=== PATIENT | male | born 1985 | race Caucasian/White ===

== ENCOUNTER 2021-03-17 08:38 | Emergency (ER) | payer OTHER, SELFPAY ==
[2021-03-17 08:46] VITALS: BP 164/90; PULSE 84; RESP 14; TEMP 37.1; O2SAT 98
--- NOTE | 2021-03-17 08:52 | ED.URI ---
HPI - URI/Sore Throat General Chief Complaint: Upper Respiratory Infection Stated Complaint: Ear Pain/Congestion Source: patient Mode of arrival: ambulatory Limitations: no limitations History of Present Illness HPI Narrative: Patient is a 35-year-old male who presents complaining of bilateral ear pain, congestion, sore throat and body aches x1 week. He denies fever. Denies nausea, vomiting and diarrhea. He denies chest pain or shortness of breath. Patient is not vaccinated for Covid. Denies having Covid in the past. He reports using [id number] medications this week with limited relief. Patient has no significant history. MD elicited complaint: sore throat and nasal congestion Related Data Allergies Allergy/AdvReac Type Severity Reaction Status Date / Time No Known Allergies Allergy Verified 03/17/21 08:56 Review of Systems Review of Systems: CONSTITUTIONAL: Denies fever, chills, or sweats. EYES: Denies visual changes, redness, or discharge. ENT: Reports congestion, sore throat, and otalgia. CARDIOVASCULAR: Denies chest pain, palpitations, or edema. RESPIRATORY: Denies cough or dyspnea. GASTROINTESTINAL: Denies abdominal pain, nausea, vomiting, or diarrhea. GENITOURINARY: Denies dysuria or hematuria. SKIN: Denies rash or itching. MUSCULOSKELETAL: Denies back pain, joint pain, or myalgia. NEUROLOGIC: Denies headache, numbness, dizziness, or weakness. PSYCHIATRIC: Denies anxiety or depression. [facility] Surgical History Surgical History (Updated 03/17/21 @ 08:54 by FAITH Maier) History of appendectomy Social History Social History (Updated 03/17/21 @ 08:54 by FAITH Maier) Smoking status: Never smoker Alcohol intake: current Alcohol use details: Occasional Substance use: never Living arrangements: with family Occupation/Education: occupation Gender identity (if verbalized by the patient): Male Comments At the time of signature, I have reviewed and agree with nursing past medical, surgical, social, and family history unless otherwise noted. Please see nursing chart for further information. There is no relevant family history pertinent to the presenting complaint. Exam Narrative: GENERAL: Well-appearing, well-nourished, and in no acute distress. HEAD: Normocephalic, atraumatic. EYES: EOMI. No redness or drainage. Conjunctiva are normal. ENT: Mucous membranes pink and moist. Nares clear. No rhinorrhea. Left TM cloudy, injected bulging, right TM normal. Throat with moderate erythema. Uvula midline. NECK: AROM. Supple. No lymphadenopathy. CHEST: No respiratory distress. HEART: Regular rate and rhythm. MUSCULOSKELETAL: No bony tenderness. EXTREMITIES: Normal range of motion. No edema. SKIN: Warm, dry, no rash. NEURO: No focal deficits. Alert and oriented x3. Gait steady. PSYCH: Normal affect. No signs of depression or anxiety. Course Vital Signs Vital signs: Vital Signs Temperature 37.1 C 03/17/21 08:46 Pulse Rate 84 03/17/21 08:46 Respiratory Rate 14 03/17/21 08:46 Blood Pressure 164/90 H 03/17/21 08:46 Pulse Oximetry 98 03/17/21 08:46 Temperature 37.1 C 03/17/21 08:46 Pulse Rate 84 03/17/21 08:46 Respiratory Rate 14 03/17/21 08:46 Blood Pressure 164/90 H 03/17/21 08:46 Pulse Oximetry 98 03/17/21 08:46 Reviewed. Patient has been instructed to follow-up with his PCP regarding his blood pressure. MDM - URI/Sore Throat MDM Narrative Medical decision making narrative: Rapid Covid and rapid strep negative. Covid PCR sent at this time. Patient does appear to have left otitis media and erythema to throat. Patient started on Augmentin at this time. Patient also given steroid for inflammation. Patient aware of hypertension. Patient is asymptomatic with BP. Discussed dietary changes. Discussed PCP follow-up. Referral to be given. Patient is aware of red flags and when to go to the emergency room. Patient agrees with plan
[2021-03-18 19:11] LABS: SARS-CoV-2 RNA PCR Negative
== END 2021-03-17 09:25 | disposition home or self-care (01) ==
PROVIDERS: Emergency Provider Nurse Practitioner
DX: H66.002 Acute suppurative otitis media without spontaneous rupture of ear drum, left ear (principal); J06.9 Acute upper respiratory infection, unspecified; J01.90 Acute sinusitis, unspecified; Z20.822 Contact with and (suspected) exposure to COVID-19
CPT/HCPCS: 87081; 87426; 87880; 99203; C9803; G0463; U0003; U0005

== ENCOUNTER 2022-06-06 15:11 | Emergency (ER) | payer OTHER, SELFPAY ==
--- NOTE | ~2022-06-06 | CT_ITS ---
EXAMINATION: CT brain wo con DATE: 06/06/2022 17:02 INDICATION: Left facial numbness. TECHNIQUE: Computed tomography (CT) of the head was performed without intravenous contrast. The mA wa s adjusted according to patient size. Iterative reconstruction technique was employed. The dose-lengt h product was 681.00 mGy-cm. COMPARISON: Head CT 09/23/2015 FINDINGS: There is no intracranial hemorrhage, acute infarction, or abnormal intracranial mass lesion . The ventricles are normal in size. There is mild mucosal thickening in the paranasal sinuses. The m astoid air cells are normal. The orbits are normal. IMPRESSION: 1. Normal brain. Reviewed, dictated and finalized at location A. LFA DEHYDRATOR OPERATOR IMPRESSION: 1. Normal brain.
[2022-06-06 15:11] VITALS: TEMP 36.3
[2022-06-06 15:21] VITALS: BP 149/89; PULSE 73; RESP 18; TEMP 36.3; O2SAT 99
--- NOTE | 2022-06-06 15:33 | ED_ITS ---
HPI - General Adult General Chief complaint: Unspecified Stated complaint: left side facial numbness; left arm numbness Time Seen by Provider: 06/06/22 15:28 Related Data Home Medications Medication Instructions Recorded Confirmed No Home Medications 06/06/22 06/06/22 Allergies Allergy/AdvReac Type Severity Reaction Status Date / Time No Known Allergies Allergy Verified 06/06/22 15:29 [facility] Surgical History Surgical History (Updated 03/17/21 @ 08:54 by Laura Farooq, CONFIGURATION MANAGEMENT ARCHITECT) History of appendectomy Social History Social History (Updated 03/17/21 @ 08:54 by Laura Farooq, CONFIGURATION MANAGEMENT ARCHITECT) Smoking status: Never smoker Alcohol intake: current Alcohol use details: Occasional Substance use: never Living arrangements: with family Occupation/Education: occupation Gender identity (if verbalized by the patient): Male Course Vital Signs Vital signs: Vital Signs Temperature 36.3 C L 06/06/22 15:21 Pulse Rate 73 06/06/22 15:21 Respiratory Rate 18 06/06/22 15:21 Blood Pressure 149/89 H 06/06/22 15:21 Pulse Oximetry 99 06/06/22 15:21 Oxygen Delivery Room Air 06/06/22 15:21 Temperature 36.3 C L 06/06/22 15:21 Pulse Rate 73 06/06/22 15:21 Respiratory Rate 18 06/06/22 15:21 Blood Pressure 149/89 H 06/06/22 15:21 Pulse Oximetry 99 06/06/22 15:21 Oxygen Delivery Room Air 06/06/22 15:21 Medical Decision Making Vital Signs Vital Signs: Vital Signs Temperature 36.3 C L 06/06/22 15:21 Pulse Rate 73 06/06/22 15:21 Respiratory Rate 18 06/06/22 15:21 Blood Pressure 149/89 H 06/06/22 15:21 Pulse Oximetry 99 06/06/22 15:21 Oxygen Delivery Room Air 06/06/22 15:21 Temperature 36.3 C L 06/06/22 15:21 Pulse Rate 73 06/06/22 15:21 Respiratory Rate 18 06/06/22 15:21 Blood Pressure 149/89 H 06/06/22 15:21 Pulse Oximetry 99 06/06/22 15:21 Oxygen Delivery Room Air 06/06/22 15:21 Discharge Plan Discharge Prescriptions: No Action No Home Medications Follow-up/Referrals: UNKNOWN,DOCTOR [Primary Care Provider] -
--- NOTE | 2022-06-06 15:36 | PC.NURSE ---
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
--- NOTE | 2022-06-06 15:39 | ED.NEUROSD ---
HPI - Neuro Symptoms/Deficit General Chief Complaint: Unspecified Stated Complaint: left side facial numbness; left arm numbness Time Seen by Provider: 06/06/22 15:28 Source: patient and RN notes reviewed Mode of arrival: ambulatory Limitations: no limitations History of Present Illness HPI Narrative: Patient states that he woke up this morning and felt like a burning on the left side of his face left chest down to his left arm. He denies any weakness in his extremities he also denies any weakness in his face. He is not having any difficulty with speech, he is not having any difficulty swallowing. He also states he had some joint pain and body aches similar to when he had COVID 8 months ago. He says that he has been having these body aches for the last couple of days and took an at-home COVID test 2 days ago and it was negative. Today he developed the symptoms of the numbness tingling or burning on his face and left arm. He denies any chest pain. He denies any nausea vomiting diarrhea, shortness of breath, fever chills. He does state he has a sore throat and 2 of his sisters are positive for strep throat at home. Onset (ago): hour(s) (6) Location: left face and left arm History of same: No Severity: mild Quality: numb and burning Relieving factors: none Exacerbating factors: none Context: sudden onset On Anticoagulants: No Associated symptoms: denies other symptoms Related Data Home Medications Medication Instructions Recorded Confirmed No Home Medications 06/06/22 06/06/22 Allergies Allergy/AdvReac Type Severity Reaction Status Date / Time No Known Allergies Allergy Verified 06/06/22 15:29 Review of Systems Review of Systems: All systems reviewed & are unremarkable except as noted in HPI and below Constitutional: Constitutional: Denies chills and Denies fever(s) ENT: Reports sore throat Musculoskeletal: Musculoskeletal: Reports myalgias and Reports arthralgias PMF Past Medical History Medical History (Updated 06/06/22 @ 17:20 by Pratik Diggs MD) No active medical problems Surgical History Surgical History History of appendectomy Social History Social History Smoking status: Never smoker Alcohol intake: current Alcohol use details: Occasional Substance use: never Living arrangements: with family Occupation/Education: occupation Gender identity (if verbalized by the patient): Male Exam Const: General: healthy appearing, no acute distress and alert Nutritional Appearance: well nourished Orientation/consciousness: patient oriented x3 Limitations: no limitations HENMT: Head: normal to inspection Ears: external ears normal Face/Nose/Sinus: Normal external nose present Face and sinus: normal facial exam Mouth: Yes moist mucous membranes Eyes: Conjunctivae: conjunctivae normal Pupils: Equal, round and reactive pupils present EOM: EOMs intact bilaterally Neck: Neck: normal visual inspection Resp: Effort & Inspection: normal respiratory effort Auscultation: clear to auscultation bilaterally Cardio: Rate: regular rate Rhythm: regular rhythm GI: GI Palp: Yes Soft to palpation and No Tenderness to palpation present (GI) Auscultation: normal bowel sounds Back/Spine/Pelvis: Cervical Spine: cervical ROM normal Thoracic/Lumbar Spine: thoraco-lumbar ROM normal Skin: General skin exam: normal color Rashes: no rashes Neuro: General: patient oriented x3, moves all extremities, no focal motor deficits and CN's II-XI intact bilaterally Speech: normal speech Gait exam (Neuro): Normal gait present Extrem: General: normal to inspection and no clubbing, cyanosis or edema Psych: Mental Status: mental status grossly normal Affect: normal affect Attitude: cooperative Course Vital Signs Vital signs: Vital Signs Temperature 36.3 C L 06/06/22 15:11 Temper
--- NOTE | 2022-06-06 15:48 | ECG_ITS ---
Measurements Intervals [place] Rate: 65 P: 48 DE: 142 QRS: 38 QRSD: 122 T: 62 QT: 399 QTc: 416 Interpretive Statements SINUS RHYTHM WITHIN NORMAL LIMITS NO PREVIOUS ECG AVAILABLE FOR COMPARISON Electronically Signed On 06-07-2022 7:59:21 [employer] INSPECTOR TIGHT by Arsen Franco M.D.
[2022-06-06 16:03] LABS: Basophils Absolute Auto 0.02 K/mm3 (0.00-0.10); Basophils Percent Auto 0.2 % (0.0-1.0); Eosinophils Absolute Auto 0.09 K/mm3 (0.02-0.50); Eosinophils Percent Auto 1.1 % (1.0-6.0); Hemoglobin 15.7 g/dL (14.0-18.0); Immature Granulocyte Absolute 0.04 K/mm3 (0.00-0.00); Immature Granulocyte Percent A 0.5 % (0.0-0.0); Lymphocytes Absolute Auto 3.34 K/mm3 (1.10-4.50); Mean Corpuscular HGB Conc 34.1 g/dL (32.0-36.0); Mean Corpuscular Hemoglobin 28.4 pg (27.0-31.0); Mean Corpuscular Volume 83.2 fL (78.0-102.0); Mean Platelet Volume 9.4 fl (8.7-11.0); Monocytes Absolute Auto 0.61 K/mm3 (0.10-0.90); Monocytes Percent Auto 7.5 % (2.0-11.0); Neutrophils Percent Auto 49.7 % (50.0-70.0); Platelet Count Result 292 K/mm3 (150-420); Red Blood Count 5.53 M/mm3 (4.70-6.10); White Blood Count 8.1 K/mm3 (4.8-10.8)
[2022-06-06 16:19] LABS: CRP < 0.5 mg/dL (0.0-0.9)
[2022-06-06 16:20] VITALS: BP 149/103; PULSE 84; RESP 18; O2SAT 99
[2022-06-06 16:23] LABS: Alanine Aminotransferase 40 U/L (16-63); Albumin Level 4.1 g/dL (3.4-5.0); Alkaline Phosphatase 78 U/L (46-116); Anion Gap 10 mmol/L (8-16); Aspartate Amino Transferase 26 U/L (15-37); Bilirubin,Total 0.5 mg/dL (0.00-1.00); Blood Urea Nitrogen 15 mg/dL (7-18); Calcium 8.6 mg/dL (8.5-10.1); Carbon Dioxide 27 mmol/L (21-32); Chloride 103 mmol/L (98-108); Estimated CRCL calculation 111 ml/min; Estimated Glomerular Filt Rate > 60; Glucose 91 mg/dL (70-99); Osmolality Calculated 290 mOsm/kg (285-295); Potassium 3.8 mmol/L (3.5-5.1); Sodium 140 mmol/L (136-145); Total Protein 7.8 g/dL (6.4-8.2)
--- NOTE | 2022-06-06 16:26 | PC.NURSE ---
During reassessment of pt, he stated he had a sore throat and that both his sisters have strep at this time, ERP made aware, strep swab ordered.
[2022-06-06 16:29] LABS: Lactic Acid Reflex 0.6 mmol/L (0.4-2.0)
[2022-06-06 16:34] LABS: Influenza A QL RT-PCR Negative (Negative); Influenza B QL RT-PCR Negative (Negative); SARS-CoV-2 RNA PCR Negative (Negative)
[2022-06-06 17:06] LABS: Strep Group A RT-PCR NOT DETECTED (Negative)
[2022-06-06 17:27] VITALS: BP 155/95; PULSE 76; RESP 18; TEMP 36.4; O2SAT 100
== END 2022-06-06 17:29 | disposition home or self-care (01) ==
PROVIDERS: Emergency Provider Emergency Medicine
DX: R20.2 Paresthesia of skin (principal); Z20.822 Contact with and (suspected) exposure to COVID-19
CPT/HCPCS: 36415; 70450; 80053; 83605; 83735; 85025; 86140; 87636; 87651; 93005; 99284

== ENCOUNTER 2022-07-06 04:11 | Emergency (ER) | payer OTHER, SELFPAY ==
--- NOTE | ~2022-07-06 | CT_ITS ---
EXAMINATION: CT brain wo con INDICATION: Transient alteration of awareness COMPARISON: 06/06/2022 TECHNIQUE: Standard unenhanced head CT. The dose-length product (DLP) was 605.33 mGy-cm. The mA was a djusted according to patient size. Iterative reconstruction technique was employed. FINDINGS: There is no intracranial hemorrhage, acute infarction, or abnormal mass lesion. The ventric les are normal. There is no abnormal mass effect or midline shift. The townsend-white matter differentiat ion is normal. The basal cisterns are patent. The orbits are normal. There is mild mucosal thickening of the paranasal sinuses. IMPRESSION: 1. No acute intracranial abnormality. Reviewed, dictated and finalized at location A.
[2022-07-06 04:18] VITALS: BP 138/97; PULSE 87; RESP 20; TEMP 36.6; O2SAT 99
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
[2022-07-06] MEDS: TETANUS,DIPHTHERIA,AC PERTUSSIS ADULT 0.5 ML (ADACEL) IM (04:58)
[2022-07-06 07:04] VITALS: BP 126/55; PULSE 80; RESP 18; TEMP 36.6; O2SAT 97
== END 2022-07-06 07:07 | disposition home or self-care (01) ==
PROVIDERS: Emergency Provider Internal Medicine Critical Care Medicine
DX: S01.81XA Laceration without foreign body of other part of head, initial encounter (principal); R41.82 Altered mental status, unspecified; Z23 Encounter for immunization; W50.0XXA Accidental hit or strike by another person, initial encounter
CPT/HCPCS: 12011; 70450; 90471; 90715; 99284

== ENCOUNTER 2022-07-06 10:13 | Emergency (ER) | payer OTHER, SELFPAY ==
[2022-07-06 10:13] VITALS: BP 126/84; PULSE 94; RESP 20; TEMP 36; O2SAT 99
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
[2022-07-06] MEDS: SODIUM CHLORIDE 0.9% IV 1,000 ML 999 ML IV CONT ×2 (11:04→11:46)
[2022-07-06] MEDS: METOCLOPRAMIDE HCL INJ 10 MG/2 ML VIAL IV PUSH (11:05)
[2022-07-06] MEDS: ONDANSETRON INJ 4 MG/2 ML VIAL IV PUSH (11:06)
[2022-07-06 11:14] LABS: Basophils Absolute Auto 0.01 K/mm3 (0.00-0.10); Basophils Percent Auto 0.1 % (0.0-1.0); Eosinophils Absolute Auto 0.01 K/mm3 (0.02-0.50); Eosinophils Percent Auto 0.1 % (1.0-6.0); Hematocrit 45.1 % (40.0-54.0); Hemoglobin 15.4 g/dL (14.0-18.0); Immature Granulocyte Absolute 0.06 K/mm3 (0.00-0.00); Immature Granulocyte Percent A 0.8 % (0.0-0.0); Lymphocytes Absolute Auto 2.74 K/mm3 (1.10-4.50); Lymphocytes Percent Auto 34.6 % (18.0-42.0); Mean Corpuscular HGB Conc 34.1 g/dL (32.0-36.0); Mean Platelet Volume 9.2 fl (8.7-11.0); Monocytes Absolute Auto 0.42 K/mm3 (0.10-0.90); Monocytes Percent Auto 5.3 % (2.0-11.0); Neutrophils Absolute Auto 4.7 K/mm3 (1.7-7.2); Neutrophils Percent Auto 59.1 % (50.0-70.0); Platelet Count Result 312 K/mm3 (150-420); Red Cell Distribution Width 12.6 % (11.6-14.4); White Blood Count 7.9 K/mm3 (4.8-10.8)
[2022-07-06 11:32] LABS: Appearance Urine Clear (Clear); Bilirubin Urine Negative (Negative); Blood Urine Negative (Negative); Color Urine Light Yellow (Yellow); Glucose Urine UA Negative (Negative); Ketones Urine Negative (Negative); Leukocyte Esterase Ur Negative LEU/UL (Negative); Nitrate Urine Negative (Negative); Protein Urine Negative (Negative); Specific Grav Ur 1.015 (1.010-1.020); Urobilinogen Urine 0.2 mg/dL (0.2-1.0); pH Urine 7.5 (5.0-8.0)
[2022-07-06 11:37] LABS: Alanine Aminotransferase 41 U/L (16-63); Albumin Level 4.3 g/dL (3.4-5.0); Alkaline Phosphatase 74 U/L (46-116); Amylase 26 U/L (25-115); Anion Gap 15 mmol/L (8-16); Aspartate Amino Transferase 28 U/L (15-37); Bilirubin,Total 0.9 mg/dL (0.00-1.00); Blood Urea Nitrogen 13 mg/dL (7-18); Calcium 8.3 mg/dL (8.5-10.1); Carbon Dioxide 25 mmol/L (21-32); Chloride 107 mmol/L (98-108); Creatine Kinase 528 U/L (39-308); Estimated CRCL calculation 110 ml/min; Estimated Glomerular Filt Rate > 60; Ethanol 160 mg/dL (0-6); Glucose 139 mg/dL (70-99); Lipase 21 U/L (16-77); Magnesium 2.2 mg/dL (1.8-2.4); Osmolality Calculated 306 mOsm/kg (285-295); Potassium 3.5 mmol/L (3.5-5.1); Salicylate 1.5 mg/dL (2.8-20.0); Sodium 147 mmol/L (136-145); Total Protein 7.9 g/dL (6.4-8.2)
[2022-07-06 11:39] LABS: Amphetamine Screen Urine Negative (Negative); Barbiturate Screen Urine Negative (Negative); Benzodiazepines Screen Urine Negative (Negative); Cannabinoid Screen Urine Positive (Negative); Cocaine Screen Urine Negative (Negative); Methadone Screen Urine Negative (Negative); Opiate Screen Urine Negative (Negative); Phencyclidine Screen Urine Negative (Negative)
[2022-07-06 11:41] LABS: Add Urine Microscopic? NO
[2022-07-06 11:42] LABS: Acetaminophen < 2 ug/mL (10-30)
[2022-07-06 11:49] VITALS: BP 115/61; PULSE 88; RESP 16; O2SAT 99
[2022-07-06 12:21] LABS: SARS-CoV-2 RNA PCR Negative (Negative)
[2022-07-06 14:01] VITALS: BP 143/99; PULSE 92; RESP 18; TEMP 36.7; O2SAT 98
[2022-07-06 15:36] LABS: Ethanol 92 mg/dL (0-6)
[2022-07-06 16:09] VITALS: BP 155/85; PULSE 100; RESP 18; O2SAT 99
[2022-07-06 17:24] LABS: Ethanol 54 mg/dL (0-6)
--- NOTE | 2022-07-06 17:30 | PC.NURSE ---
Pt has been medically cleared and [address] contacted per protocol for mental health viri. Pt informed on POC and is cooperative at this time, watching TV and and sipping water. Sitter remains at pt bedside, will await counselor for eval.
[2022-07-06 18:06] VITALS: BP 148/100; PULSE 88; RESP 16; O2SAT 99
[2022-07-06 19:33] VITALS: BP 138/86; PULSE 93; RESP 18; TEMP 36.8
== END 2022-07-06 19:37 | disposition home or self-care (01) ==
PROVIDERS: Emergency Provider Emergency Medicine
DX: F10.129 Alcohol abuse with intoxication, unspecified (principal); Y90.0 Blood alcohol level of less than 20 mg/100 ml; F32.A Depression, unspecified; R45.851 Suicidal ideations; Z20.822 Contact with and (suspected) exposure to COVID-19
CPT/HCPCS: 12011; 36415; 70450; 80053; 80307; 81003; 82150; 82550; 83690; 83735; 84443; 85025; 90471; 90715; 96361; 96374; 96375; 99284; J2405; J2765; J7030; U0003; U0005

== ENCOUNTER 2022-07-10 16:47 | Emergency (ER) | payer OTHER, SELFPAY ==
--- NOTE | 2022-07-10 16:49 | ED.URI ---
HPI - URI/Sore Throat General Chief Complaint: Upper Respiratory Infection Stated Complaint: chest tight, ears Time Seen by Provider: 07/10/22 16:49 Source: patient and RN notes reviewed History of Present Illness HPI Narrative: Patient is a 37-year-old male who presents to urgent care with complaints of chest congestion and bilateral ear pain. Patient states he has been off and on for approximately 3 weeks and he has been taking cold medication. Patient denies any fevers, nausea or vomiting. Denies any wheezing or shortness of breath. Denies any sinus congestion or pressure. No other acute complaints. No acute distress noted. Patient aware of the plan of care. Some parts of this dictation were generated by voice recognition software and may contain typographical and/or grammatical inaccuracies. Related Data Allergies Allergy/AdvReac Type Severity Reaction Status Date / Time No Known Allergies Allergy Verified 07/06/22 10:25 Review of Systems Review of Systems: CONSTITUTIONAL: Denies fever, chills, or sweats. EYES: Denies visual changes, redness, or discharge. ENT: Denies rhinorrhea, congestion, sore throat. Reports postnasal drainage and bilateral otalgia CARDIOVASCULAR: Denies chest pain, palpitations, or edema. RESPIRATORY: Reports of cough without dyspnea GASTROINTESTINAL: Denies abdominal pain, nausea, vomiting, or diarrhea. GENITOURINARY: Denies dysuria or hematuria. SKIN: Denies rash or itching. MUSCULOSKELETAL: Denies back pain, joint pain, or myalgia. NEUROLOGIC: Denies headache, numbness, or weakness. All other systems reviewed are negative, except as documented in HPI. [facility] Past Medical History Medical History No active medical problems Surgical History Surgical History History of appendectomy Social History Social History Smoking status: Never smoker Alcohol intake: current Alcohol use details: Occasional Substance use: never Substance use type: marijuana Living arrangements: with family Occupation/Education: occupation Gender identity (if verbalized by the patient): Male Comments At the time of my signature, I reviewed and agree with the nursing past medical, surgical, social, and family history. There is no relevant family history pertinent to the patient complaint. Exam Narrative: GENERAL: This is a well-nourished, well-developed patient, in no apparent distress. HEAD: normocephalic, atraumatic. EYES: PERRL. Sclera clear/white. Vision is grossly intact. EARS: External ears normal, auditory canals clear and without drainage, TMs normal without perforation. Hearing grossly intact. NOSE: External nose normal with no obvious nasal discharge, nares without redness, clear rhinorrhea. THROAT: Mucous membranes moist, posterior pharynx clear. Moderate postnasal drainage NECK: Neck supple, non-tender without lymphadenopathy CARDIOVASCULAR: Regular rate and rhythm without murmurs, gallops, or rubs. RESPIRATORY: Clear to auscultation. Breath sounds equal bilaterally. No wheezes, rales, or rhonchi. SKIN: warm, intact with no suspicious lesions or rash, good texture and turgor. NEURO: awake, alert, and oriented to person, place and time. There were no obvious focal neurologic abnormalities. EXTREMITIES: No clubbing, cyanosis, or edema. Course Course Level of Care: Express Care Visit Vital Signs Vital signs: Vital Signs Temperature 98.4 F 07/10/22 16:56 Pulse Rate 91 07/10/22 16:56 Respiratory Rate 20 07/10/22 16:56 Blood Pressure 140/93 H 07/10/22 16:56 Pulse Oximetry 98 07/10/22 16:56 Oxygen Delivery Room Air 07/10/22 16:56 Temperature 98.4 F 07/10/22 16:56 Pulse Rate 91 07/10/22 16:56 Respiratory Rate 20 07/10/22 16:56 Blood Pressure 140/93 H 07/10/22 16:56 Pulse Oximetry 98 07/10/22 16
[2022-07-10 16:56] VITALS: BP 140/93; PULSE 91; RESP 20; TEMP 36.9; O2SAT 98
== END 2022-07-10 17:31 | disposition home or self-care (01) ==
PROVIDERS: Emergency Provider Nurse Practitioner Family
DX: J32.9 Chronic sinusitis, unspecified (principal)
CPT/HCPCS: 99213; G0463

== ENCOUNTER 2022-12-09 14:55 | Emergency (ER) | payer OTHER, SELFPAY ==
[2022-12-09 15:03] VITALS: BP 142/92; PULSE 92; RESP 16; TEMP 36.4; O2SAT 99
--- NOTE | 2022-12-09 15:10 | ED.URI ---
HPI - URI/Sore Throat General Chief Complaint: Upper Respiratory Infection Stated Complaint: throat/tingly body History of Present Illness HPI Narrative: pt is a 37 y/o male, presents to with 5 day hx of sore throat symptoms without fevers or chills. Today he was exerting himself moving concrete and began feeling tingly all over and had to sit down. this has resolved since sitting to drive here and since sitting in the exam room in a climate controlled room. He is drinking fluids well and urinating normally. He denies associated fevers or chills. He does have nasal congestion and a runny nose. He denies any other complaints or modifying factors. Related Data Allergies Allergy/AdvReac Type Severity Reaction Status Date / Time No Known Allergies Allergy Verified 07/06/22 10:25 Review of Systems Constitutional: Constitutional: Reports no additional constitutional complaints ENT: Reports as per HPI Respiratory: Respiratory: Reports as per HPI [facility] Past Medical History Medical History No active medical problems Surgical History Surgical History History of appendectomy Social History Social History Smoking status: Never smoker Alcohol intake: current Alcohol use details: Occasional Substance use: never Substance use type: marijuana Living arrangements: with family Occupation/Education: occupation Gender identity (if verbalized by the patient): Male Exam Const: General: cooperative, healthy appearing, comfortable and no acute distress Nutritional Appearance: obese Orientation/consciousness: oriented to person, oriented to place, oriented to time and patient oriented x3 Limitations: no limitations HENMT: Head: normal to inspection Ears: hearing grossly normal bilaterally, external ears normal and TM abnormal (serous pattern noted bilaterally. no erythema or purulence ) Face/Nose/Sinus: Normal external nose present, Normal nares present, No nasal polyps present and Normal nasal mucous membranes and turbinates present Mouth: Yes Normal oral and palatal mucosa present Throat: posterior oropharynx normal, tonsils normal, uvula midline and other (no tonsil hypertrophy, no exudate, + cobble stone appearance posterior phar) Eyes: General: appearance normal, both eyes and all related structures Eyelids: eyelids normal Conjunctivae: conjunctivae normal Neck: Neck: normal visual inspection, no lymphadenopathy, no meningeal signs and trachea midline Lymphatic: no lymphadenopathy noted Resp: Effort & Inspection: normal respiratory effort and able to speak in complete sentences Auscultation: clear to auscultation bilaterally Cardio: Rate: regular rate Rhythm: regular rhythm Skin: General skin exam: normal color Lesions: no lesions Rashes: no rashes Neuro: General: oriented to person, oriented to place, oriented to time, patient oriented x3, gait normal, tone normal, moves all extremities, Normal light touch and pain sensation, no meningeal signs, no focal motor deficits and CN's II-XI intact bilaterally Course Course Level of Care: Express Care Visit (33023) Vital Signs Vital signs: Vital Signs Temperature 36.4 C L 12/09/22 15:03 Pulse Rate 92 12/09/22 15:03 Respiratory Rate 16 12/09/22 15:03 Blood Pressure 142/92 H 12/09/22 15:03 Pulse Oximetry 99 12/09/22 15:03 Oxygen Delivery Room Air 12/09/22 15:03 Temperature 36.4 C L 12/09/22 15:03 Pulse Rate 92 12/09/22 15:03 Respiratory Rate 16 12/09/22 15:03 Blood Pressure 142/92 H 12/09/22 15:03 Pulse Oximetry 99 12/09/22 15:03 Oxygen Delivery Room Air 12/09/22 15:03 MDM - URI/Sore Throat MDM Narrative Medical decision making narrative: strep negative. Suspect viral URI, mild dehydration. Plan to discharge home encouraging rest,
== END 2022-12-09 15:38 | disposition home or self-care (01) ==
PROVIDERS: Emergency Provider Nurse Practitioner Family
DX: J06.9 Acute upper respiratory infection, unspecified (principal)
CPT/HCPCS: 87081; 87880; 99213; G0463

== ENCOUNTER 2023-01-03 16:55 | Emergency (ER) | payer OTHER, SELFPAY ==
[2023-01-03] VITALS (18 sets, daily range): BP systolic 119–168; BP diastolic 84–104; PULSE 69–84; RESP 12–21; TEMP 36.4–36.8; O2SAT 96–100
[2023-01-03] MEDS: EPINEPHrine HCL INJ 1 MG/ML AMPUL 0.5 MG IM (17:45)
[2023-01-03] MEDS: KETOROLAC 30 MG/ML VIAL (*BKC) IV PUSH (17:47)
--- NOTE | 2023-01-03 17:50 | ED.ALLEREA ---
HPI - Allergic Reaction General Chief complaint: Allergic Reaction Stated complaint: bee sting Time Seen by Provider: 01/03/23 17:02 Source: patient Mode of arrival: ambulatory Limitations: no limitations History of Present Illness HPI narrative: 37 yo M with PMHx of allergic reactions to insect stings came to the ED 4 hours after being stung in the top of the right hand by a bee or wasp (he is not sure). The area is swelling rapidly, a/w 8/10 pain, numbness in his fingers. Feeling his throat is scratchy and having persistent abdominal discomfort since the sting. No respiratory distress. MD complaint: allergic reaction Onset (ago): hour(s) Exposure: insect bite Known history of allergy to: bee stings Severity: severe Treatment prior to arrival: none Previous Allergic Reaction History: angioedema Related Data Allergies Allergy/AdvReac Type Severity Reaction Status Date / Time No Known Allergies Allergy Verified 01/03/23 17:24 Review of Systems Constitutional: Constitutional: Reports as per HPI and Reports no additional constitutional complaints Eyes: Eyes: Reports as per HPI and Reports no additional eye complaints ENT: Reports system reviewed and no additional complaints, except as documented and Reports as per HPI Cardiovascular: Cardiovascular: Reports as per HPI and Reports no additional cardiovascular complaints Respiratory: Respiratory: Reports as per HPI and Reports no additional respiratory complaints Gastrointestinal: Gastrointestinal: Reports as per HPI and Reports no additional gastrointestinal complaints Genitourinary: Genitourinary: Reports as per HPI Musculoskeletal: Musculoskeletal: Reports no additional musculoskeletal complaints and Reports as per HPI Integumentary/Breasts: Skin/Breast: Reports system reviewed and no additional complaints, except as docu and Reports as per HPI Neurologic: Reports system reviewed and no additional complaints, except as documented and Reports as per HPI Psychiatric: Psychiatric: Reports no additional psychiatric complaints and Reports as per HPI Endocrine: Endocrine: Reports no additional endocrine complaints and Reports as per HPI Hematologic/Lymphatic: Hematologic/Lymphatic: Reports no additional hematologic/lymphatic complaints and Reports as per HPI Allergic/Immunologic: Allergic/Immunologic: Reports no additional allergic/immunologic complaints and Reports as per HPI PMFSH Past Medical History Medical History No active medical problems Surgical History Surgical History History of appendectomy Social History Social History Smoking status: Never smoker Alcohol intake: current Alcohol use details: Occasional Substance use: never Substance use type: marijuana Living arrangements: with family Occupation/Education: occupation Gender identity (if verbalized by the patient): Male Exam Const: General: cooperative, healthy appearing, comfortable, no acute distress, well developed, alert, awake, average body habitus and well nourished Nutritional Appearance: average body habitus and well nourished Orientation/consciousness: oriented to person, oriented to place and oriented to time Limitations: no limitations HENMT: Head: normal to inspection Ears: hearing grossly normal bilaterally, external ears normal and TM's normal bilaterally Face/Nose/Sinus: Normal external nose present, Normal nares present, No nasal polyps present, Normal nasal mucous membranes and turbinates present, Normal septum present, No nasal discharge present, normal facial exam, sinuses nontender and face symmetric Face and sinus: normal facial exam, sinuses nontender and face symmetric Mouth: Yes Normal oral and palatal mucosa present, Yes lip normal, Yes tongue normal, Yes Normal salivary glands and duct
[2023-01-03] MEDS: methylPREDNISolone SOD SUCC 40 MG VIAL 80 MG IV PUSH (17:52)
[2023-01-03] MEDS: FAMOTIDINE 20 MG/2 ML VIAL 40 MG IV PUSH (17:53)
[2023-01-03] MEDS: MORPHINE SULFATE (*CRX) 4 MG/ML INJ IV PUSH (19:10)
== END 2023-01-03 20:58 | disposition home or self-care (01) ==
PROVIDERS: Emergency Provider Emergency Medicine
DX: T63.441A Toxic effect of venom of bees, accidental (unintentional), initial encounter (principal); T78.2XXA Anaphylactic shock, unspecified, initial encounter; T78.3XXA Angioneurotic edema, initial encounter
CPT/HCPCS: 96372; 96374; 96375; 99284; J0171; J1885; J2270; J2920

== ENCOUNTER 2023-03-24 13:02 | Emergency (ER) | payer OTHER, SELFPAY ==
[2023-03-24 13:18] VITALS: BP 152/75; PULSE 92; RESP 18; TEMP 37.2; O2SAT 99
--- NOTE | 2023-03-24 14:06 | ED.GENADULT ---
HPI - General Adult General Chief complaint: Unspecified Stated complaint: Body Aches/Nausea Time Seen by Provider: 03/24/23 14:06 Source: patient, RN notes reviewed and old records reviewed Mode of arrival: ambulatory Limitations: no limitations History of Present Illness HPI narrative: 37 year old male who presents to [facility] care with complaints of body aches, headaches, neck pain ,stomach ache and tiredness, throat discomfort, ear pain states symptoms started a week ago but decreased then reoccurred 2 days ago. patient reports that initially he had a fever but has not had anything but low grade temp recently. Patient reports that he has been taking DayQuil for his symptoms. MD complaint: body aches and nausea, headaches, stomach ache, ear pain Onset (ago): week(s) (1) Severity scale (1-10): 5 Treatments prior to arrival: other (DayQuil) Related Data Allergies Allergy/AdvReac Type Severity Reaction Status Date / Time No Known Allergies Allergy Verified 03/24/23 13:58 Review of Systems Review of Systems: CONSTITUTIONAL:Repots malaise, chills, sweats, or fever. EYES: Denies visual changes, redness, or discharge. ENT: Reports rhinorrhea, congestion, sinus pain, otalgia and sore throat. CARDIOVASCULAR: Denies chest pain, palpitations, or edema. RESPIRATORY: Reports cough.? Denies dyspnea. GASTROINTESTINAL: Denies abdominal pain,states stomach ache with nausea, no vomiting, diarrhea SKIN: Denies rash or itching. MUSCULOSKELETAL:REports myalgia. NEUROLOGIC: REports headache. 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 There is no relevant family history pertinent to the presenting complaint Exam Narrative: GENERAL: Well-appearing, well-nourished, and in no acute distress. HEAD: Normocephalic EYES: PERRLA, conjunctivae clear ENT: Nares clear, turbinates edematous and erythematous, clear discharge. Mucous membranes moist. TM pearly townsend with dull light reflex bilaterally; no tragal tenderness. Oropharynx erythematous without lesions. Tonsils not enlarged and without exudate, no drooling, no hoarseness, no trismus, uvula midline.post nasal drainage NECK: Supple. No lymphadenopathy CHEST: Clear to auscultation, breath sounds equal. No wheezing, rhonchi, rales, or stridor. No respiratory distress, speaks in full sentences. rare cough,SAO2 99% on room air HEART: Regular rate and rhythm. No murmur heard. SKIN: Warm, dry, no rash. NEURO: Alert and oriented x3. PSYCH: Normal mood and affect Course Course Emergency Course: Patient is aware of diagnosis, understands and agrees to treatment plan.? Anticipatory guidance given.? Patient agrees to follow-up as directed and is aware of reasons to seek care at the emergency department. Portions of this record may have been created with voice recognition software Level of Care: Express Care Visit Vital Signs Vital signs: Vital Signs Temperature 37.2 C 03/24/23 13:18 Pulse Rate 92 03/24/23 13:18 Respiratory Rate 18 03/24/23 13:18 Blood Pressure 152/75 H 03/24/23 13:18 Pulse Oximetry 99 03/24/23 13:18 Oxygen Delivery Room Air 03/24/23 13:18 Temperature 37.2 C 03/24/23 13:18 Pu
== END 2023-03-24 14:25 | disposition home or self-care (01) ==
PROVIDERS: Emergency Provider Registered Nurse
DX: U07.1 COVID-19 (principal)
CPT/HCPCS: 87081; 87426; 87804; 87880; 99213; C9803; G0463

== ENCOUNTER 2023-05-17 12:07 | Emergency (ER) | payer OTHER, SELFPAY ==
[2023-05-17] VITALS (10 sets, daily range): BP systolic 123–156; BP diastolic 86–107; PULSE 82–94; RESP 12–20; TEMP 36.6–36.7; O2SAT 97–100
--- NOTE | ~2023-05-17 | CT_ITS ---
EXAMINATION: CT brain wo con INDICATION: Dizziness and nausea COMPARISON: 07/06/2022 TECHNIQUE: Standard unenhanced head CT. The dose-length product (DLP) was 681.00 mGy-cm. The mA was a djusted according to patient size. Iterative reconstruction technique was employed. FINDINGS: No intracranial hemorrhage, acute infarction, or abnormal mass lesion. The ventricles are n ormal. No abnormal mass effect or midline shift. The townsend-white matter differentiation is normal. The basal cisterns are patent. The orbits are normal. The paranasal sinuses, mastoids and calvarium are normal. IMPRESSION: 1. No acute intracranial abnormality. Reviewed, dictated and finalized at location A. ING MACHINE OPERATOR
--- NOTE | ~2023-05-17 | CT_ITS ---
EXAMINATION: CT cervical spine wo con DATE: 05/17/2023 13:38 INDICATION: Generalized weakness TECHNIQUE: Computed tomography (CT) of the cervical spine was performed without intravenous contrast. The dose-length product (DLP) was 500.83 mGy-cm. Automated exposure control and iterative reconstruc tion technique were employed. COMPARISON: 09/23/2015 FINDINGS: There is straightening of the cervical spine which can be positional or due to muscular spa sm. Bone alignment is normal. There is no fracture. The vertebral body heights are maintained. There is mild loss of intervertebral disc space height at C6-7 and C7-T1. The odontoid process is intact. T he prevertebral soft tissues are normal. IMPRESSION: 1. Mild cervical spondylosis without acute findings. Reviewed, dictated and finalized at location A. L WIRER
--- NOTE | ~2023-05-17 | XR_ITS ---
EXAMINATION: XR chest 2V DATE: 05/17/2023 13:37 INDICATION: Weakness TECHNIQUE: PA and lateral views of the chest are obtained. COMPARISON: 09/23/2015 FINDINGS: The lungs are free of acute opacities. No pleural effusion or pneumothorax. The cardiomedia stinal silhouette is normal. There is mild thoracic spondylosis. IMPRESSION: 1. No acute cardiopulmonary abnormality. Reviewed, dictated and finalized at location A. IC HEALTH STAFF NURSE
--- NOTE | 2023-05-17 12:26 | ECG_ITS ---
Measurements Intervals [place] Rate: 83 P: 33 [place]: 154 QRS: 33 QRSD: 102 T: 33 QT: 352 QTc: 414 Interpretive Statements SINUS RHYTHM NORMAL ELECTROCARDIOGRAM COMPARED TO ECG 06/06/2022 16:03:48 NO SIGNIFICANT CHANGES Electronically Signed On 05-18-2023 7:47:52 VENEER CLIPPER by Arsen Franco M.D.
--- NOTE | 2023-05-17 12:29 | ED.ALCOHOL ---
HPI - Alcohol General Chief Complaint: Alcohol Stated Complaint: dehydration Time Seen by Provider: 05/17/23 12:18 Source: patient Mode of arrival: ambulatory Limitations: no limitations History of Present Illness HPI narrative: patient is a 38-year-old male with a alcohol drinking problem and alcoholism. He has many social stressors to include work and loss of family members recently. It appears he has blacked out over the evening from drinking heavily due to his grandmother's yesterday. He has multiple bruises but unclear what happened. He is interested in alcohol abstinence. tetanus up-to-date in the past year. MD complaint: alcohol intoxication, alcohol withdrawal and alcohol dependence Amount of alcohol consumed: Typically 30 beers a day however was drinking more last night Chronic alcohol use: Yes Previous visits for alcohol intoxication: No Recent trauma: Yes ( fell overnight but does not remember; no acute injury complaints) Associated symptoms: nausea, vomiting, syncope ( near syncopal feeling prior to arrival) and depression ( and anxiety; no suicide or homicide thoughts) Treatments prior to arrival: none Related Data Allergies Allergy/AdvReac Type Severity Reaction Status Date / Time No Known Allergies Allergy Verified 05/17/23 12:20 Review of Systems Review of Systems: All systems reviewed & are unremarkable except as noted in HPI and below Constitutional: Constitutional: Reports no additional constitutional complaints Eyes: Eyes: Reports no additional eye complaints ENT: Reports system reviewed and no additional complaints, except as documented Cardiovascular: Cardiovascular: Reports no additional cardiovascular complaints Respiratory: Respiratory: Reports no additional respiratory complaints Gastrointestinal: Gastrointestinal: Reports no additional gastrointestinal complaints Genitourinary: Genitourinary: Reports no additional male genitourinary complaints Musculoskeletal: Musculoskeletal: Reports no additional musculoskeletal complaints Integumentary/Breasts: Skin/Breast: Reports system reviewed and no additional complaints, except as docu Neurologic: Reports system reviewed and no additional complaints, except as documented Psychiatric: Psychiatric: Reports no additional psychiatric complaints Endocrine: Endocrine: Reports no additional endocrine complaints Hematologic/Lymphatic: Hematologic/Lymphatic: Reports no additional hematologic/lymphatic complaints Allergic/Immunologic: Allergic/Immunologic: Reports no additional allergic/immunologic complaints [facility] Past Medical History Medical History No active medical problems 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 Surgical History Surgical History History of appendectomy Social History Social History Smoking status: Never smoker Alcohol intake: current Alcohol use details: Occasional Substance use: never Living arrangements: with family Occupation/Education: occupation Gender identity (if verbalized by the patient): Male Exam Const: General: ill appearing Nutritional Appearance: well nourished Orientation/consciousness: patient oriented x3 HENMT: Head: normal to inspection Ears: external ears normal Face/Nose/Sinus: Normal external nose present Eyes: Conjunctivae: conjunctivae normal Pupils: Equal, round and reactive pupils present EOM: EOMs intact bilaterally Neck: Neck: normal visual inspection Chest: Chest palpation & inspection: normal inspection of the chest Resp: Effort & Inspection: normal respiratory effort and not labored Auscultation: clear to auscultation bilaterally and no crackles Cardio: Rate: regular rate Rhythm: regular rhythm Heart sounds: no murmurs GI: Inspection: non-distended GI Palp: Yes Soft to palp
[2023-05-17] MEDS: SODIUM CHLORIDE 0.9% IV 1,000 ML 999 ML IV CONT ×2 (12:39→13:34)
[2023-05-17] MEDS: LORazepam INJ (*CRX) 2 MG/ML VIAL 0.5 MG IV PUSH (12:52)
[2023-05-17 13:09] LABS: Basophils Absolute Auto 0.02 K/mm3 (0.00-0.10); Basophils Percent Auto 0.3 % (0.0-1.0); Eosinophils Absolute Auto 0.02 K/mm3 (0.02-0.50); Eosinophils Percent Auto 0.3 % (1.0-6.0); Hematocrit 46.1 % (40.0-54.0); Hemoglobin 15.8 g/dL (14.0-18.0); Immature Granulocyte Absolute 0.03 K/mm3 (0.00-0.00); Immature Granulocyte Percent A 0.5 % (0.0-0.0); Lymphocytes Absolute Auto 2.57 K/mm3 (1.10-4.50); Mean Corpuscular HGB Conc 34.3 g/dL (32.0-36.0); Mean Corpuscular Volume 81.6 fL (78.0-102.0); Mean Platelet Volume 8.9 fl (8.7-11.0); Monocytes Absolute Auto 0.49 K/mm3 (0.10-0.90); Neutrophils Percent Auto 48.9 % (50.0-70.0); Platelet Count Result 310 K/mm3 (150-420); Red Blood Count 5.65 M/mm3 (4.70-6.10); Red Cell Distribution Width 12.4 % (11.6-14.4); White Blood Count 6.1 K/mm3 (4.8-10.8)
[2023-05-17 13:24] LABS: INR 1.2; Prothrombin Time 12.5 Seconds (9.50-12.10)
[2023-05-17 13:35] LABS: Alanine Aminotransferase 39 U/L (16-63); Albumin Level 3.9 g/dL (3.4-5.0); Alkaline Phosphatase 72 U/L (46-116); Anion Gap 11 mmol/L (8-16); Aspartate Amino Transferase 17 U/L (15-37); Bilirubin,Total 0.7 mg/dL (0.00-1.00); Blood Urea Nitrogen 12 mg/dL (7-18); Calcium 7.3 mg/dL (8.5-10.1); Carbon Dioxide 27 mmol/L (21-32); Chloride 106 mmol/L (98-108); Estimated CRCL calculation 125 ml/min; Estimated Glomerular Filt Rate > 60; Glucose 107 mg/dL (70-99); Magnesium 2.2 mg/dL (1.8-2.4); Osmolality Calculated 297 mOsm/kg (285-295); Sodium 144 mmol/L (136-145); Total Protein 7.5 g/dL (6.4-8.2); Troponin I 7.1 ng/L (0.00-60.4)
[2023-05-17 13:59] LABS: SARS-CoV-2 RNA PCR Negative (Negative)
[2023-05-17 14:02] LABS: Influenza A QL RT-PCR Negative (Negative); Influenza B QL RT-PCR Negative (Negative); RSV RNA, RT-PCR Negative (Negative)
== END 2023-05-17 14:34 | disposition home or self-care (01) ==
PROVIDERS: Emergency Provider Emergency Medicine
DX: F10.20 Alcohol dependence, uncomplicated (principal); R55 Syncope and collapse; E86.0 Dehydration; F41.9 Anxiety disorder, unspecified; F32.A Depression, unspecified; Y90.9 Presence of alcohol in blood, level not specified; Z20.822 Contact with and (suspected) exposure to COVID-19
CPT/HCPCS: 36415; 70450; 71046; 72125; 80053; 83735; 84484; 85025; 85610; 85730; 87637; 93005; 96361; 96374; 99284; J2060; J7030

== ENCOUNTER 2023-06-10 08:12 | Outpatient (CLI) | payer OTHER, SELFPAY ==
--- NOTE | ~2023-06-10 | XR_ITS ---
EXAMINATION: XR sinus min 3V DATE: 06/10/2023 08:55 INDICATION: Stuffy nose. TECHNIQUE: 6 views of the paranasal sinuses were obtained. COMPARISON: Head CT 05/17/2023 FINDINGS: Bone alignment is normal. The nasal septum is at the midline. The paranasal sinuses are jack ssly clear. IMPRESSION: 1. Normal paranasal sinuses. Reviewed, dictated and finalized at location A. LIFT MULE OPERATOR
--- NOTE | ~2023-06-10 | XR_ITS ---
Clinical Indication: Hypertension PA and lateral views of the chest: Comparison: 05/17/2023 Findings: The lungs are clear, without evidence of focal consolidation or pleural effusion. Cardiome diastinal silhouette is within normal limits. Bones and soft tissues are unremarkable. Impression: Normal chest. Reviewed, dictated and finalized at location . AL ARCHITECT Impression: Normal chest.
[2023-06-10 08:28] LABS: Basophils Absolute Auto 0.01 K/mm3 (0.00-0.10); Basophils Percent Auto 0.2 % (0.0-1.0); Eosinophils Percent Auto 1.7 % (1.0-6.0); Hematocrit 48.6 % (40.0-54.0); Hemoglobin 16.7 g/dL (14.0-18.0); Immature Granulocyte Absolute 0.03 K/mm3 (0.00-0.00); Immature Granulocyte Percent A 0.5 % (0.0-0.0); Lymphocytes Absolute Auto 2.53 K/mm3 (1.10-4.50); Mean Corpuscular HGB Conc 34.4 g/dL (32.0-36.0); Mean Corpuscular Hemoglobin 28.2 pg (27.0-31.0); Mean Corpuscular Volume 82.1 fL (78.0-102.0); Mean Platelet Volume 8.9 fl (8.7-11.0); Monocytes Absolute Auto 0.55 K/mm3 (0.10-0.90); Monocytes Percent Auto 9.3 % (2.0-11.0); Neutrophils Absolute Auto 2.7 K/mm3 (1.7-7.2); Neutrophils Percent Auto 45.3 % (50.0-70.0); Platelet Count Result 274 K/mm3 (150-420); Red Blood Count 5.92 M/mm3 (4.70-6.10); Red Cell Distribution Width 12.2 % (11.6-14.4); White Blood Count 5.9 K/mm3 (4.8-10.8)
[2023-06-10 08:31] LABS: Appearance Urine Clear (Clear); Bilirubin Urine Negative (Negative); Blood Urine Negative (Negative); Color Urine Yellow (Yellow); Glucose Urine UA Negative (Negative); Ketones Urine Negative (Negative); Leukocyte Esterase Ur Negative (Negative); Nitrate Urine Negative (Negative); Protein Urine Negative (Negative); Specific Grav Ur 1.025 (1.010-1.020); Urobilinogen Urine 0.2 mg/dL (0.2-1.0)
--- NOTE | 2023-06-10 08:33 | ECG_ITS ---
Measurements Intervals [place] Rate: 61 P: 65 [place]: 126 QRS: 64 QRSD: 107 T: 108 QT: 373 QTc: 377 Interpretive Statements SINUS RHYTHM NONSPECIFIC ST & T-WAVE ABNORMALITY COMPARED TO ECG 05/17/2023 12:13:12 T-WAVE ABNORMALITY NOW PRESENT Electronically Signed On 06-10-2023 16:17:32 PULPER TENDER by Emily Mittal M.D.
[2023-06-10 08:36] LABS: Add Urine Microscopic? NO
[2023-06-10 09:27] LABS: Alanine Aminotransferase 43 U/L (16-63); Albumin Level 4.4 g/dL (3.4-5.0); Alkaline Phosphatase 81 U/L (46-116); Anion Gap 13 mmol/L (8-16); Aspartate Amino Transferase 23 U/L (15-37); Bilirubin,Total 1.2 mg/dL (0.00-1.00); Blood Urea Nitrogen 27 mg/dL (7-18); Calcium 8.9 mg/dL (8.5-10.1); Carbon Dioxide 24 mmol/L (21-32); Chloride 103 mmol/L (98-108); Cholesterol 250 mg/dL (0-200); Estimated Glomerular Filt Rate > 60; Glucose 99 mg/dL (70-99); HDL Direct 54 mg/dL (40-60); LDL Cholesterol Calculated 144 mg/dL (<130); Osmolality Calculated 295 mOsm/kg (285-295); Potassium 4.5 mmol/L (3.5-5.1); Sodium 140 mmol/L (136-145); Thyroid Stimulating Hormone 2.77 uIU/mL (0.36-3.74); Total Protein 7.7 g/dL (6.4-8.2); Triglycerides 260 mg/dL (0-150)
== END 2023-06-10 08:13 | disposition home or self-care (01) ==
LOC: CHSLAB 08:16
PROVIDERS: PCP Internal Medicine; Visit Provider Internal Medicine
DX: I10 Essential (primary) hypertension (principal); J32.9 Chronic sinusitis, unspecified; R94.31 Abnormal electrocardiogram [ECG] [EKG]
CPT/HCPCS: 36415; 70220; 71046; 80053; 80061; 81003; 84443; 85025; 93005

== ENCOUNTER 2023-11-19 09:09 | Emergency (ER) | payer OTHER, SELFPAY ==
[2023-11-19 09:13] VITALS: BP 153/79; PULSE 79; RESP 20; TEMP 36.3; O2SAT 98
--- NOTE | 2023-11-19 09:17 | ED.DENTAL ---
HPI - Dental/Oral General Chief complaint: Dental/Oral Stated complaint: tooth pain Time Seen by Provider: 11/19/23 09:15 History of Present Illness HPI Narrative: Pt presents with pain in gums over upper front teeth for a few days. Pt could not get into his PCP and can't see a dentist for two weeks. Pt denies injury or fever. 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 Surgical History Surgical History History of appendectomy Social History Social History Smoking status: Never smoker Alcohol intake: current Alcohol use details: Occasional Substance use: never Living arrangements: with family Occupation/Education: occupation Gender identity (if verbalized by the patient): Male Exam Const: General: healthy appearing and no acute distress Nutritional Appearance: well nourished Orientation/consciousness: patient oriented x3 Limitations: no limitations HENMT: Head: normal to inspection Teeth and gingiva: dentition normal and abnormal tooth and associated gingiva (gingival inflammation no abscess) Throat: posterior oropharynx normal Eyes: EOM: EOMs intact bilaterally Neck: Neck: normal visual inspection and no lymphadenopathy Resp: Effort & Inspection: normal respiratory effort Skin: General skin exam: normal color Rashes: no rashes Wounds: no wounds Neuro: General: patient oriented x3, moves all extremities and no focal motor deficits Course Vital Signs Vital signs: Vital Signs Temperature 97.4 F L 11/19/23 09:13 Pulse Rate 79 11/19/23 09:13 Respiratory Rate 20 11/19/23 09:13 Blood Pressure 153/79 H 11/19/23 09:13 Pulse Oximetry 98 11/19/23 09:13 Oxygen Delivery Room Air 11/19/23 09:13 Temperature 97.4 F L 11/19/23 09:13 Pulse Rate 79 11/19/23 09:13 Respiratory Rate 20 11/19/23 09:13 Blood Pressure 153/79 H 11/19/23 09:13 Pulse Oximetry 98 11/19/23 09:13 Oxygen Delivery Room Air 11/19/23 09:13 MDM - Dental/Oral MDM Narrative Medical decision making narrative: appears to have gingivits no abscess will start on pcn and nsaids and a few norco Differential Diagnosis Differential diagnosis: Likely gingival abscess, dental caries, toothache, dental abscess and fracture of tooth Discharge Plan Discharge Clinical Impression: Gingivitis Patient Disposition: Home, Self-Care Condition: Stable Instructions: Antibiotic Form, Gingivitis (ED) Prescriptions: New penicillin V potassium 500 mg tablet 500 mg PO QID Qty: 40 0RF naproxen [Naprosyn] 500 mg tablet 500 mg PO BID Qty: 20 0RF hydrocodone-acetaminophen 5-325 mg tablet 1 tablet PO Q6H PRN (Reason: pain) Qty: 7 0RF No Action epinephrine [EpiPen] 0.3 mg/0.3 mL auto-injector 0.3 mg IM ONCE Qty: 2 0RF Rx Instructions: as a single dose; may repeat once; for severe anaphylaxis Follow-up/Referrals: Leandro Washington MD [Primary Care Provider] - Stand Alone Forms: Work/School Release IP
== END 2023-11-19 09:26 | disposition home or self-care (01) ==
PROVIDERS: Emergency Provider Emergency Medicine; PCP Internal Medicine
DX: K05.10 Chronic gingivitis, plaque induced (principal)
CPT/HCPCS: 99283

== ENCOUNTER 2025-01-19 18:52 | Emergency (ER) | payer OTHER, SELFPAY ==
[2025-01-19 19:00] VITALS: BP 154/96; PULSE 76; RESP 20; TEMP 36.3; O2SAT 99
--- NOTE | 2025-01-19 19:10 | PC.NURSE ---
report to lorena adrian
--- NOTE | 2025-01-19 19:12 | ED_ITS ---
HPI - Dental/Oral General Chief complaint: Dental/Oral Stated complaint: dental pain Source: patient Mode of arrival: ambulatory Limitations: no limitations History of Present Illness HPI Narrative: this is a 39-year-old male with a history of dental pain currently on antibiotics but is having pain that he rates about a 6/10 with no relief with current medication. No fever chills no chest pain no shortness of breath no nausea vomiting. MD Complaint: tooth pain Teeth map: 2 1. 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 No active medical problems Surgical History Surgical History History of appendectomy Social History Social History Smoking status: Never smoker Alcohol intake: current Alcohol use details: Occasional Substance use: never Living arrangements: with family Occupation/Education: occupation Gender identity (if verbalized by the patient): Male Exam 2 Const: General: healthy appearing and no acute distress Nutritional Appearance: well nourished Orientation/consciousness: patient oriented x3 Neck: Neck: normal visual inspection Chest: Chest palpation & inspection: normal inspection of the chest Resp: Effort & Inspection: normal respiratory effort Auscultation: clear to auscultation bilaterally Cardio: Rate: regular rate Rhythm: regular rhythm GI: GI Palp: Yes Soft to palpation Course Course Emergency Course: Medical decision making Angelika of: The patient was evaluated by myself emergency department. History obtained from patient who is in history and physical exam performed and witnessed by tech. Patient received a dose of IM Toradol 60mg. Repeat assessment Doing well on repeat exam with no acute distress. Symptoms improved since arrival to the emergency department. Repeat vitals are stable patient agrees with discussion and after shared medical decision-making and agrees with some discharge. Advised follow-up with his dentist within the next 3 to 5 days. Vital Signs Vital signs: Vital Signs Temperature 36.3 C L 01/19/25 19:00 Pulse Rate 76 01/19/25 19:00 Respiratory Rate 20 01/19/25 19:00 Blood Pressure 154/96 H 01/19/25 19:00 Pulse Oximetry 99 01/19/25 19:00 Oxygen Delivery Room Air 01/19/25 19:00 Temperature 36.3 C L 01/19/25 19:00 Pulse Rate 76 01/19/25 19:00 Respiratory Rate 20 01/19/25 19:00 Blood Pressure 154/96 H 01/19/25 19:00 Pulse Oximetry 99 01/19/25 19:00 Oxygen Delivery Room Air 01/19/25 19:00 Critical Care Time Critical Care Time Critical Care Time: No Discharge Plan Discharge Clinical Impression: Toothache Patient Disposition: Home Condition: Stable Instructions: Antibiotic Form, Toothache (ED) Additional Instructions: Advised patient to take medication as prescribed and to follow with dentist as scheduled. Patient Language: [place] Prescriptions: New tramadol 50 mg tablet 50 mg PO Q6H PRN (Reason: pain) Qty: 20 0RF No Action epinephrine [EpiPen] 0.3 mg/0.3 mL auto-injector 0.3 mg IM ONCE Qty: 2 0RF Rx Instructions: as a single dose; may repeat once; for severe anaphylaxis penicillin V potassium 500 mg tablet 500 mg PO QID Qty: 40 0RF naproxen [Naprosyn] 500 mg tablet 500 mg PO BID Qty: 20 0RF hydrocodone-acetaminophen 5-325 mg tablet 1 tablet PO Q6H PRN (Reason: pain) Qty: 7 0RF Follow-up/Referrals: Leandro Washington MD [Primary Care Provider, Internal Medicine] Stand Alone Forms: Work/School Release IP Time of Disposition: 19:17
[2025-01-19] MEDS: KETOROLAC (*BKC) 60 MG/2 ML VIAL IM (19:29)
[2025-01-19 19:45] VITALS: BP 148/86; PULSE 78; RESP 18; O2SAT 99
== END 2025-01-19 19:45 | disposition home or self-care (01) ==
LOC: CHSED 19:23
PROVIDERS: Emergency Provider Emergency Medicine; PCP Internal Medicine
DX: K08.89 Other specified disorders of teeth and supporting structures (principal)
CPT/HCPCS: 96372; 99283; J1885